=== PATIENT | female | born 1955 | race Caucasian/White ===

== ENCOUNTER 2016-09-15 17:02 | Observation (INO) | payer OTHER ==
[~2016-09-15] VITALS: Ht 167.6 cm; Wt 75.0 kg
[2016-09-15 17:04] VITALS: BP 122/73; PULSE 62; RESP 20; TEMP 97.4; O2SAT 99
--- NOTE | 2016-09-15 17:08 | PD ---
Physical Exam Time Seen by Provider: 17:07 Narrative 61 year olf female complains of epigastric discomfort started today. Describes it as a sudden onset of pressure. associated nausea. Lasted 20 minutes, then resolved. Denies vomiting, cp/sob, URI symptoms, dietary changes. VSS Seen at triage desk, awaiting bed placement. Data Data Last Documented VS Vital Signs Date Time Temp Pulse Resp B/P Pulse Ox O2 Delivery O2 Flow Rate FiO2 09/15/16 17:04 97.4 62 20 122/73 99 Room Air [facility] Medical Record Reviewed: Yes Supervised Visit with ISABELLA: Yes Scripts No Active Prescriptions or Reported Meds Leo Hinton Sep 15, 2016 17:08
[2016-09-15] MEDS ORDERED: BUPR150CR PO (17:37)
[2016-09-15] MEDS ORDERED: SODIUM CHLORIDE 0.9% FLUSH 10 ML FLUSH IVF PRN (17:45)
[2016-09-15] MEDS ORDERED: ASPIRIN 81 MG CHEW TAB PO ONE (17:45)
--- NOTE | 2016-09-15 17:57 | PD ---
HPI Chief Complaint: Abdominal Pain Time Seen by Provider: 17:31 Travel History International Travel<30 days: No Contact w/Intl Traveler<30days: No Traveled to known affect area: No History of Present Illness HPI 61-year-old female here for evaluation of an episode of epigastric abdominal pain that occurred around 4:00 PM today while sitting in her work truck. Pain was described as pressure, lasted for about 20 minutes, was nonradiating, was associated with shortness of breath and diaphoresis. The patient denies history of cardiac disease. There is family history of cardiac disease in her father who at the age of 63 from an NH. She smokes about 10 cigarettes per day. She occasionally drinks alcohol. Currently she is pain-free. No paresthesias or motor deficits. No history of abdominal surgeries. No nausea or vomiting. PFSH Past Medical History Hypertension: Yes (hx of) Immunizations Current: Yes ?: Not Past Surgical History Section: Yes Social History Alcohol Use: Yes (occ) Tobacco Use: Yes (10 CIGS/DAILY) Substance Use: No Allergies-Medications (Allergen,Severity, Reaction): Coded Allergies: No Known Allergies (Unverified , 09/15/16) Reported Meds & Prescriptions Reported Meds & Active Scripts Active Reported Wellbutrin SR 12 HR (Bupropion HCl) 150 Mg Tab 150 Mg PO Q12HR Review of Systems Except as stated in HPI: all other systems reviewed are Neg Physical Exam Narrative GENERAL: Well-developed, well-nourished, comfortable, no acute distress. SKIN: Focused skin assessment warm/dry. HEAD: Atraumatic. Normocephalic. EYES: Pupils equal and round. No scleral icterus. No injection or drainage. ENT: Mucous membranes pink and moist. NECK: Trachea midline. No JVD. CARDIOVASCULAR: Regular rate and rhythm. Distal pulses brisk and equal bilaterally. RESPIRATORY: No accessory muscle use. Clear to auscultation. Breath sounds equal bilaterally. GASTROINTESTINAL: Abdomen soft, non-tender, nondistended. Normal bowel sounds. MUSCULOSKELETAL: No obvious deformities. No clubbing. No cyanosis. No edema. NEUROLOGICAL: Awake and alert. No obvious cranial nerve deficits. Motor grossly within normal limits. Normal speech. PSYCHIATRIC: Appropriate mood and affect; insight and judgment normal. Data Data Last Documented VS Vital Signs Date Time Temp Pulse Resp B/P Pulse Ox O2 Delivery O2 Flow Rate FiO2 09/15/16 18:00 62 16 115/84 100 Room Air 09/15/16 17:04 97.4 Orders Electrocardiogram (09/15/16 17:37) Ckmb (Isoenzyme) Profile (09/15/16 17:37) Complete Blood Count With Diff (09/15/16 17:37) Comprehensive Metabolic Panel (09/15/16 17:37) Magnesium (Mg) (09/15/16 17:37) Prothrombin Time / Inr (Pt) (09/15/16:37) Act Partial Throm Time (Ptt) (09/15/16 17:37) Troponin I (09/15/16 17:37) Lipase (09/15/16 17:37) Chest, Single Ap (09/15/16:37) Ecg Monitoring (09/15/16 17:37) Iv Access Insert/Monitor (09/15/16 17:37) Oximetry (09/15/16 17:37) Aspirin Chew (Aspirin Chew) (09/15/16 17:45) Sodium Chloride 0.9% Flush (Ns Flush) (09/15/16 17:45) Labs Laboratory Tests Test 09/15/16 17:50 White Blood Count 7.7 TH/MM3 Red Blood Count 4.60 MIL/MM3 Hemoglobin 14.7 GM/DL Hematocrit 43.9 % Mean Corpuscular Volume 95.4 FL Mean Corpuscular Hemoglobin 32.0 PG Mean Corpuscular Hemoglobin 33.5 % Concent Red Cell Distribution Width 13.6 % Platelet Count 221 TH/MM3 Mean Platelet Volume 8.6 FL Neutrophils (%) (Auto) 65.1 % Lymphocytes (%) (Auto) 21.8 % Monocytes (%) (Auto) 9.5 % Eosinophils (%) (Auto) 3.1 % Basophils (%) (Auto) 0.5 % Neutrophils # (Auto) 5.0 TH/MM3 Lymphocytes # (Auto) 1.7 TH/MM3 Monocytes # (Auto) 0.7 TH/MM3 Eosinophils # (Auto) 0.2 TH/MM3 Basophils # (Auto) 0.0 TH/MM3 CBC Comment DIFF FINAL Differential Comment Prothrombin Time 10.8 SEC Prothromb Time International 1.0 RATIO Ratio Activated Partial 27.1 SEC Thromboplast Time Sodium Level 139 MEQ/L Potassium Level 4.1 MEQ/L Chloride Level 104 MEQ/L Carbon Dioxide Level 28.9 MEQ/L Anion Gap 6 MEQ/L Blood Urea Nitrogen 15 MG/DL Creatinine 0.85 MG/DL Estimat Glomerular Filtration 68 ML/MIN Rate Random Glucose 98 MG/DL Calcium Level 9.0 MG/DL Magnesium Level 2.1 MG/DL Total Bilirubin 0.3 MG/DL Aspartate Amino Transf 39 U/L (AST/SGOT) Alanine Aminotransferase 37 U/L (ALT/SGPT) Alkaline Phosphatase 70 U/L Total Creatine Kinase 96 U/L Troponin I LESS THAN 0.02 NG/ML Total Protein 7.2 GM/DL Albumin 3.7 GM/DL Lipase 221 U/L [facility] Medical Decision Making Medical Screen Exam Complete: Yes Emergency Medical Condition: Yes Medical Record Reviewed: Yes Interpretation(s) EKG: Sinus, rate 63, normal axis, normal intervals, Q waves in inferior leads, no acute ischemic abnormality. Differential Diagnosis ACS, pneumothorax, pericarditis, PE, pneumonia, pancreatitis, hepatobiliary disease Narrative Course Initial vital signs show heart rate 62, blood pressure 122/73, pulse ox 99% on room air, oral temp of 97.4F. CBC is unremarkable. CMP is unremarkable. Lipase is 221. Cardiac enzymes are negative. Chest x-ray: No acute disease. Patient was made aware of all findings. She was given a dose of aspirin. She remains pain-free while in the emergency department. Her symptoms are concerning for cardiac etiology. She was diaphoretic and short of breath at time of symptoms. She smokes about 10 cigarettes per day. Her father of an NH at the age of 63. She will be admitted to the chest pain center for further cardiac evaluation. She is amenable to this plan. Diagnosis Primary Impression: Chest pain Qualified Code: R07.9 - Chest pain, unspecified type Admitting Information Admitting Physician Requests: Luiz Carmona MD Sep 15, 2016 17:57
[2016-09-15 18:00] VITALS: BP 115/84; PULSE 62; RESP 16; O2SAT 100
[2016-09-15 18:15] LABS: BASOPHIL % 0.5 % (0.0-2.0); EOSINOPHIL # 0.2 TH/MM3 (0-0.4); EOSINOPHIL % 3.1 % (0.0-4.0); HEMATOCRIT 43.9 % (35.0-46.0); HEMO FLAGS DIFF FINAL; LYMPH % 21.8 % (9.0-44.0); LYMPHOCYTE # 1.7 TH/MM3 (1.0-4.8); MEAN CELL VOLUME 95.4 FL (80.0-100.0); MEAN CORPUSCULAR HGB CONC 33.5 % (32.0-36.0); MONO % 9.5 % (0.0-8.0); NEUT % 65.1 % (16.0-70.0); PLATELET COUNT 221 TH/MM3 (150-450); RED CELL DISTRIBUTION WIDTH 13.6 % (11.6-17.2); WHITE BLOOD COUNT 7.7 TH/MM3 (4.0-11.0)
[2016-09-15 18:29] LABS: APTT (PATIENT) 27.1 SEC (24.3-30.1); PROTHROMBIN TIME - PATIENT 10.8 SEC (9.8-11.6)
--- NOTE | 2016-09-15 18:46 | RADRPT ---
EXAM DATE/TIME: 09/15/2016 18:08 [place] COMPARISON: CHEST PA & LAT, September 08, 2015, 9:58. INDICATIONS : Chest pain. MEDICAL HISTORY : None. SURGICAL HISTORY : None. ENCOUNTER: Initial ACUITY: 1 day PAIN SCORE: 9/10 LOCATION: middle chest. FINDINGS: A single view of the chest demonstrates the lungs to be symmetrically aerated without evidence of mas s, infiltrate or effusion. The cardiomediastinal contours are unremarkable. Osseous structures are intact. There are electrocardiogram leads. CONCLUSION: No acute disease. John Gomez MD on September 15, 2016 at 18:44 Board Certified Radiologist. This report was verified electronically.
[2016-09-15 18:47] LABS: ALKALINE PHOSPHATASE 70 U/L (45-117); ALT (GPT) 37 U/L (10-53); ANION GAP 6 MEQ/L (5-15); AST (GOT) 39 U/L (15-37); BICARBONATE 28.9 MEQ/L (21.0-32.0); BLOOD UREA NITROGEN 15 MG/DL (7-18); CHLORIDE 104 MEQ/L (98-107); GLOMERULAR FILTRATION RATE 68 ML/MIN (>89); MAGNESIUM 2.1 MG/DL (1.5-2.5); SODIUM (NA) 139 MEQ/L (136-145); TOTAL BILIRUBIN ADULT 0.3 MG/DL (0.2-1.0)
[2016-09-15 18:49] LABS: CREATINE KINASE 96 U/L (26-192); POTASSIUM 4.1 MEQ/L (3.5-5.1)
[2016-09-15 19:33] VITALS: BP 122/72; PULSE 60; RESP 18; O2SAT 96
[2016-09-15 20:05] VITALS: O2SAT 96
[2016-09-15 21:33] VITALS: BP 103/56; PULSE 67; RESP 18
[2016-09-15 21:40] VITALS: PULSE 63
[2016-09-15 22:00] LABS: CREATINE KINASE 75 U/L (26-192)
[2016-09-16 00:30] LABS: CREATINE KINASE 64 U/L (26-192)
[2016-09-16 03:20] VITALS: BP 104/60; PULSE 56; RESP 18; TEMP 97.8; O2SAT 98
--- NOTE | 2016-09-16 07:24 | MH ---
cc: KIERSTEN SINGH MD DATE OF ADMISSION 09/15/2016 HISTORY This is a 61-year-old woman who has developed midepigastric or lower substernal chest discomfort yesterday. 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 Some mild shortness of breath and diaphoresis was present. No nausea was noted. This resolved spontaneously. She came to the emergency room and was subsequently admitted to the chest pain center. No prior history of any heart or abdominal discomfort has been present. Her risk factors for coronary disease include a history of smoking approximately a half a pack of cigarettes per day and is taking Wellbutrin to try to stop because of her father who at age 63 of an [place]. She denies any history of hypertension, diabetes or hyperlipidemia. She is currently feeling well. Her troponins were normal x3. Electrocardiogram was unremarkable as is chest x-ray. PAST MEDICAL HISTORY Her past medical history is otherwise unremarkable. CURRENT MEDICATIONS Include only Wellbutrin as a stop smoking aid. ALLERGIES None SOCIAL HISTORY As above. PHYSICAL EXAM On physical exam, she is awake, alert in no acute distress. VITAL SIGNS: Blood pressure is 104/80, pulse is 60 and regular. NECK: There is no neck vein distension. LUNGS: Clear. CARDIOVASCULAR: Exam reveals a regular rate and rhythm. There is no murmur or gallop noted. EXTREMITIES: Reveal no edema. Peripheral pulses are intact. ASSESSMENT The patient has atypical chest discomfort. Electrocardiogram was unremarkable. I think it is unlikely that it is heart related. We will plan a treadmill exercise test for further evaluation. MD ROQUE Multani/EMERY /7:05 AM /7:11 AM
[2016-09-16 07:55] VITALS: BP 123/81; PULSE 71; RESP 20; TEMP 98; O2SAT 97
[2016-09-16 08:09] VITALS: PULSE 57
--- NOTE | 2016-09-16 08:09 | HHI.DCPOC ---
Discharge Care Plan Diagnosis: (1) Chest pain Goals to Promote Your Health * To prevent worsening of your condition and complications * To maintain your health at the optimal level Directions to Meet Your Goals Take your medications as prescribed Follow your dietary instruction Follow activity as directed Keep your appointments as scheduled Take your immunizations and boosters as scheduled If your symptoms worsen call your PCP, if no PCP go to Urgent Care Center or Emergency Room Smoking is Dangerous to Your Health. Avoid second hand smoke Call the 24-hour hour crisis hotline for domestic abuse at Siddhartha Zacarias Sep 16, 2016 08:09
--- NOTE | 2016-09-16 12:05 | EKG ---
Date Performed: 09/15/2016 Time Performed: 23:36:17 PTAGE: 61 years EKG: Sinus rhythm BORDERLINE ECG PREVIOUS TRACING : 09/15/2016 21.25 Since previous tracing, no significant change noted DOCTOR: Apolinar Akhtar Interpretating Date/Time 09/16/2016 11:58:46
--- NOTE | 2016-09-16 12:06 | EKG ---
Date Performed: 09/15/2016 Time Performed: 21:25:31 PTAGE: 61 years EKG: Sinus rhythm BORDERLINE ECG PREVIOUS TRACING : 09/15/2016 18.16 DOCTOR: Apolinar Akhtar Interpretating Date/Time 09/16/2016 12:00:01
--- NOTE | 2016-09-16 12:08 | EKG ---
Date Performed: 09/15/2016 Time Performed: 18:16:49 PTAGE: 61 years EKG: Sinus rhythm BORDERLINE ECG PREVIOUS TRACING : 09/08/2015 09.10 Since previous tracing, no significant change noted DOCTOR: Apolinar Akhtar Interpretating Date/Time 09/16/2016 12:01:02
--- NOTE | 2016-09-16 12:12 | TR ---
Date Performed: 09/16/2016 Time Performed: 07:30:27 DOCTOR: Apolinar Akhtar DRUG LIST: CLINICAL HISTORY: CHEST PAIN REASON FOR TEST: REASON FOR ENDING: OBSERVATION: CONCLUSION: GIANNA PROTOCOL. NO CP. TEST STOPPED AFTER EXCEEDING GOAL HR SECONDARY TO SOB AND LEG FATIGUE.Maximum NR=056 % Max HR Achieved=94.0% Maximum WC=343/78 Total Exercise Time=8:57 COMMENTS: Patient exercised using the Gianna protocol. No electrocardiographic changes were seen to suggest ischemia. Hemodynamic response to exercise was normal. No significant arrhythmia was prese nt.
== END 2016-09-16 09:58 | disposition home or self-care (01) ==
LOC: NEPD 17:02 → NEDA 19:11 → NEPHCDU 20:36
PROVIDERS: ADMIT Internal Medicine Interventional Cardiology; ATTEND Internal Medicine Interventional Cardiology
DX: R07.89 Other chest pain (principal); I10 Essential (primary) hypertension; F17.210 Nicotine dependence, cigarettes, uncomplicated; Z82.49 Family history of ischemic heart disease and other diseases of the circulatory system
CPT/HCPCS: 71010; 80053; 82550; 83690; 83735; 84484; 85025; 85610; 85730; 93005; 93017; 99285; G0378